=== PATIENT | female | born 1980 | race Two or more races ===

== ENCOUNTER → 2020-06-21 | Outpatient (CLI) | payer OTHER ==
[~2020-06-21] VITALS: Ht 66 cm; Wt 54.4 kg
[~2020-06-21] MED LIST: RESTORA CAPSUL1 EACH
== END | disposition home or self-care (01) ==
LOC: OFIC 805 12:30
PROVIDERS: ATTEND Otolaryngology
DX: J30.89 Other allergic rhinitis (principal); R09.81 Nasal congestion

== ENCOUNTER → 2020-06-22 | Outpatient (CLI) | payer OTHER | END | disposition home or self-care (01) | LOC: TOM 10:15 | PROVIDERS: ATTEND Otolaryngology | DX: J30.89 Other allergic rhinitis (principal); J34.2 Deviated nasal septum ==

== ENCOUNTER 2020-08-01 11:54 | Outpatient (CLI) | payer OTHER | END 2020-08-01 12:30 | disposition home or self-care (01) | LOC: OFIC 805 11:54 | PROVIDERS: ATTEND Otolaryngology | DX: R09.81 Nasal congestion (principal); J30.89 Other allergic rhinitis; J34.2 Deviated nasal septum; M95.0 Acquired deformity of nose ==